=== PATIENT | male | born 1980 | race Caucasian/White ===

== ENCOUNTER → 2023-03-25 | Outpatient (CLI) | payer OTHER, SELFPAY ==
--- NOTE | 2023-03-25 | DI.MRI.S_ITS ---
PROCEDURE: MR BRAIN (IAC) WWO CON INDICATIONS: Mixed conductive and sensorineural hearing loss TECHNIQUE: Noncontrast sagittal T1 spin echo, axial FLAIR, axial gradient echo, axial diffusion and ADC through the brain. Axial thin-slice 3D CISS, coronal TruFISP, axial T1 spin echo with fat saturation through the internal auditory canals. After the administration of contrast, thin slice axial and coronal T1 spin echo with fat saturation through the internal auditory canals, and axial and coronal and sagittal T1 spin echo with fat saturation through the brain. COMPARISON: Report of a prior exam 03/08/2021. Images not available FINDINGS: Image quality: Excellent. Cerebellopontine angles: No cerebellopontine angle masses. Inner ear structures appear normally formed. No suspicious enhancement in the internal auditory canal or along the course of the 7th cranial nerve. CSF spaces: Ventricles are normal in size and shape. No extra-axial fluid collections. Basal cisterns are patent. Brain: No intracranial bleeds or mass effects. Kamara-white matter interface is intact. No abnormal intracranial enhancement. Diffusion weighted images demonstrate no acute ischemic insults. Brainstem appears normal. Normal intravascular flow voids are present. Skull and face: Canal wall up right mastoidectomy. Mastoid bowl is fluid filled without restricted diffusion or enhancement. Inner ear structures are appropriate bilaterally. There is fluid within the left mastoid and probably left middle ear without enhancement Sinuses: Unremarkable paranasal sinuses IMPRESSION: Unremarkable internal auditory canals without evidence of schwannoma Visualized portions of the brain also unremarkable without acute infarct or mass lesion. Right canal wall up mastoidectomy without restricted diffusion to suggest residual cholesteatoma. Left mastoid and middle ear fluid may be inflammatory or postinflammatory. Consider follow-up CT temporal bone Approved by: Evert Crump M.D. on 04/08/2023 at 15:18
== END ==
LOC: MRI 07:11
PROVIDERS: Referring Provider Otolaryngology Otology & Neurotology; Visit Provider Otolaryngology Otology & Neurotology
DX: H90.6 Mixed conductive and sensorineural hearing loss, bilateral (principal)
CPT/HCPCS: 70553; A9579